=== PATIENT | female | born 1985 | race Caucasian/White ===

== ENCOUNTER → 2021-02-01 09:23 | Outpatient (REF) | payer OTHER, SELFPAY | LOC: ANHLAB 09:23 | PROVIDERS: PCP Physician Assistant; Visit Provider Nurse Practitioner | DX: D22.71 Melanocytic nevi of right lower limb, including hip (principal); D22.5 Melanocytic nevi of trunk | CPT/HCPCS: 88305 ==

== ENCOUNTER 2022-07-25 11:22 | Outpatient (CLI) | payer OTHER, SELFPAY ==
--- NOTE | ~2022-07-25 | MMUS_ITS ---
EXAMINATION: MM diagnostic darren LT w vaughn, US breast LT limited HISTORY: Palpable lump in the upper outer quadrant of the left breast. TECHNIQUE: Craniocaudal, mediolateral, and mediolateral oblique 3-D tomosynthesis images of the left breast were performed and synthetic 2-D images were generated. CAD analysis was submitted and interpr eted. High resolution limited left breast ultrasound was performed. COMPARISON: None, baseline BREAST PARENCHYMAL COMPOSITION: The breasts are heterogeneously dense, which may obscure small masses . FINDINGS: MAMMOGRAPHIC FINDINGS: No suspicious mass, calcification, or architectural distortion are identified to suggest malignancy. No mammographic correlate is identified for the reported palpable abnormality of concern. ULTRASOUND: There is no evidence of focal abnormal solid or cystic mass in the vicinity of the reported palpable abnormality of concern in the left breast. IMPRESSION: 1. No specific mammographic or sonographic correlate is identified for the reported palpable abnormal ity of concern. Further evaluation at this time should be based on clinical assessment. Continued fol low-up physical examination is recommended. 2. Recommend routine screening mammography beginning at age 40. BI-RADS Category 1: Negative Reviewed, dictated and finalized at location A. IMPRESSION: 1. No specific mammographic or sonographic correlate is identified for the repo rted palpable abnormality of concern. Further evaluation at this time should be based on clinical assessment. Continued follow-up physical examination is jimy mmended. 2. Recommend routine screening mammography beginning at age 40. BI-RADS Category 1: Negative
== END 2022-07-25 11:23 | disposition home or self-care (01) ==
PROVIDERS: PCP Physician Assistant; Visit Provider Obstetrics & Gynecology Gynecology
DX: N63.20 Unspecified lump in the left breast, unspecified quadrant (principal)
CPT/HCPCS: 76642; 77061; 77065; G0279

== ENCOUNTER 2022-08-04 22:13 | Emergency (ER) | payer OTHER, SELFPAY ==
--- NOTE | ~2022-08-04 | CT_ITS ---
EXAMINATION: CTA chest PE protocol DATE: 08/05/2022 02:56 INDICATION: Tachycardia. TECHNIQUE: Computed tomography angiography (CTA) of the chest was performed with 100 mL Omnipaque-350 intravenous contrast timed to evaluate the pulmonary arteries. Coronal maximum intensity projection 3D-reconstructions were created by the technologist. Automated exposure control and iterative reconst ruction technique were employed. The dose-length product was 225.08 mGy-cm. COMPARISON: Chest CT 09/23/2010 FINDINGS: There is no pneumonia or pleural effusion. The heart size is normal. No pericardial effusio n. There is no pulmonary embolus. There is mild thoracic spondylosis. IMPRESSION: 1. No pulmonary embolus. Reviewed, dictated and finalized at location A. IMPRESSION: 1. No pulmonary embolus.
--- NOTE | ~2022-08-04 | XR_ITS ---
EXAMINATION: XR chest 1V portable DATE: 08/05/2022 00:59 INDICATION: Sepsis. Fever. TECHNIQUE: A single frontal view of the chest was obtained. COMPARISON: Chest 2 views 10/02/2015, chest CT 08/05/2022 FINDINGS: The chest demonstrates clear lungs without pneumonia, pleural effusion, or pneumothorax. Th e heart size is normal. IMPRESSION: 1. No acute cardiopulmonary disease. Reviewed, dictated and finalized at location A.
[2022-08-04 22:23] VITALS: BP 130/97; PULSE 129; RESP 18; TEMP 37.6; O2SAT 100
--- NOTE | 2022-08-04 22:50 | ED.FEVER ---
HPI - Fever General Chief Complaint: Fever Stated Complaint: sparrow, chills, abd pain Time Seen by Provider: 08/04/22 22:38 History of Present Illness HPI Narrative: Patient is a 37-year-old female presenting with general malaise and palpitations. Patient states that she was feeling generally unwell today. This evening, she laid down to take a nap. When she woke up, she felt like her heart was racing out of her chest. States that she felt very hot as well. Patient states that she had 2 tooth extractions approximately a week ago. States that she has not had any oral pain or swelling. States that she was concerned that she may have an infection today so she came in for evaluation. Currently, patient states that she still feels generally rundown. Reports mild headache. She denies vision changes, numbness or weakness, chest pain, cough, shortness of breath, abdominal pain, nausea or vomiting, diarrhea, dysuria, leg swelling. Related Data Home Medications Medication Instructions Recorded Confirmed metoprolol succinate PO PRN 12/28/20 Allergies Allergy/AdvReac Type Severity Reaction Status Date / Time Penicillins Allergy Unknown Swelling Verified 08/04/22 22:41 Review of Systems Review of Systems: All systems reviewed & are unremarkable except as noted in HPI and below PMFSH Past Medical History Medical History SVT (supraventricular tachycardia) Family History Family History Father Heart disease Cancer Mother SVT (supraventricular tachycardia) Skin cancer Social History Social History Smoking status: Never smoker Alcohol intake: never Substance use: never Exam Narrative: GENERAL: Well-appearing, well-nourished, and in no acute distress. HEAD: Normocephalic, atraumatic. EYES: PERRLA and EOMI. ENT: Nares clear, no rhinorrhea or epistaxis. Mucous membranes moist. NECK: Supple. CHEST: Clear to auscultation. No respiratory distress. HEART: Tachycardic, Regular rhythm. No murmur heard. Normal peripheral pulses. ABDOMEN: Soft, nontender, nondistended, normal active bowel sounds. EXTREMITIES: Normal range of motion. No edema. SKIN: Warm, dry, no rash. NEURO: No focal deficits. Alert and oriented x3. PSYCH: Normal mood and affect. Course Vital Signs Vital signs: Vital Signs Temperature 99.6 F 08/04/22 22:23 Pulse Rate 129 H 08/04/22 22:23 Respiratory Rate 18 08/04/22 22:23 Blood Pressure 130/97 H 08/04/22 22:23 Pulse Oximetry 100 08/04/22 22:23 Oxygen Delivery Room Air 08/04/22 22:23 Temperature 98.9 F 08/05/22 00:50 Pulse Rate 76 08/05/22 04:09 Respiratory Rate 17 08/05/22 04:09 Blood Pressure 105/59 L 08/05/22 04:09 Pulse Oximetry 99 08/05/22 04:09 Oxygen Delivery Room Air 08/04/22 22:23 MDM - Fever MDM Narrative Medical decision making narrative: Patient is a 37-year-old female presenting with general malaise and palpitations. On arrival, patient is tachycardic in the 120s. Remainder of vitals are within normal limits. Exam is otherwise unremarkable. Dimer slightly elevated so CT PE study ordered. Blood work unremarkable except for very mild thrombocytopenia. CT PE shows no evidence of PE. Patient continues to rest comfortably. Her vital signs have normalized following IV fluids. Discussed the reassuring work-up with the patient. Suspect her symptoms are related to a viral syndrome. Advised PCP follow-up and appropriate return precautions were given. Patient voiced understanding and is agreeable with plan. Discharged in stable condition. Lab Data Result diagrams: 08/04/22 23:43 08/04/22 23:43 Labs: Lab Results 08/04/22 08/04/22 08/04/22 Range/Units 23:42 23:43 23:43 WBC 5.9 (4.5-10.0) K/mm3 RBC 4.35 (4.2-5.4) M/mm3 Hg
[2022-08-04 23:19] VITALS: BP 130/58; PULSE 105; RESP 22; TEMP 37.7; O2SAT 99
[2022-08-04] MEDS: SODIUM CHLORIDE 0.9% IV 2,000 ML 999 ML (23:39)
[2022-08-04] MEDS: KETOROLAC 15 MG/ML VIAL (*BKC) IV PUSH (23:40)
[2022-08-04 23:51] LABS: Basophils Percent Auto 0.5 % (0.2-1.2); Eosinophils Percent Auto 0.3 % (0-4.4); Hematocrit 40.4 % (37.0-47.0); Hemoglobin 13.8 g/dL (12.0-15.0); Immature Granulocyte Absolute 0.02 K/mm3 (0.00-0.031); Immature Granulocyte Percent A 0.3 % (0-0.5); Immature Platelet Fraction Pct 4.3 % (0.9-11.2); Lymphocytes Absolute Auto 0.62 K/mm3 (0.9-3.2); Lymphocytes Percent Auto 10.5 % (18.3-44.2); Mean Corpuscular HGB Conc 34.2 g/dl (32-36); Mean Corpuscular Hemoglobin 31.7 pg (26-34); Mean Corpuscular Volume 92.9 fl (80-100); Mean Platelet Volume 10.5 fl (7.4-10.4); Monocytes Absolute Auto 0.3 K/mm3 (0.1-0.6); Monocytes Percent Auto 4.7 % (2.6-8.5); Neutrophils Percent Auto 83.7 % (45.5-73.1); Platelet Count Result 133 k/mm3 (150-375); Red Blood Count 4.35 M/mm3 (4.2-5.4); Red Cell Distribution Width 12.6 % (11.5-14.5); White Blood Count 5.9 K/mm3 (4.5-10.0)
[2022-08-04 23:52] LABS: Add Urine Microscopic? YES; Appearance Urine Cloudy (Clear); Bilirubin Urine Negative (Negative); Blood Urine Negative (Negative); Color Urine Yellow (Yellow); Glucose Urine UA Negative (Negative); Ketones Urine Trace mg/dL (Negative); Leukocyte Esterase Ur Negative LEU/UL (Negative); Mucus Urine Rare /lpf; Nitrate Urine Negative (Negative); Protein Urine Negative (Negative); Specific Grav Ur 1.006 (1.001-1.035); Urobilinogen Urine Negative mg/dL (<2.0)
[2022-08-04 23:58] LABS: Lactic Acid Reflex 0.8 mmol/L (0.7-2.0)
[2022-08-04 23:59] LABS: INR 1.1; Prothrombin Time 13.9 Seconds (11.1-14.7)
[2022-08-05 00:02] LABS: Alanine Aminotransferase 33 U/L (6-35); Albumin Level 4.5 g/dL (3.5-5.1); Alkaline Phosphatase 56 U/L (38-126); Anion Gap 10 mmol/L (8-16); Aspartate Amino Transferase 35 U/L (14-36); Bilirubin,Total 1.4 mg/dL (0.2-1.3); Blood Urea Nitrogen 15 mg/dL (7-17); CRP 1.1 mg/dL (<1.0); Calcium 9.3 mg/dL (8.4-10.2); Carbon Dioxide 26 mmol/L (22-30); Chloride 97 mmol/L (98-107); Estimated CRCL calculation 84 ml/min; Estimated Glomerular Filt Rate > 60; Glucose 104 mg/dL (65-110); Potassium 3.7 mmol/L (3.4-5.0); Sodium 133 mmol/L (137-145)
[2022-08-05 00:25] LABS: Influenza A QL RT-PCR Negative (Negative); Influenza B QL RT-PCR Negative (Negative); SARS-CoV-2 RNA PCR Negative
[2022-08-05] MEDS: SODIUM CHLORIDE 0.9% IV 1,000 ML 999 ML IV CONT (00:47)
[2022-08-05 00:50] VITALS: BP 113/62; PULSE 88; RESP 20; TEMP 37.2; O2SAT 99
[2022-08-05 01:25] LABS: D Dimer 0.57 ug/mL (<0.48)
[2022-08-05 01:30] VITALS: BP 111/79; PULSE 85; RESP 19; O2SAT 99
[2022-08-05 03:35] VITALS: BP 123/77; PULSE 88; RESP 19; O2SAT 100
[2022-08-05 04:09] VITALS: BP 105/59; PULSE 76; RESP 17; O2SAT 99
== END 2022-08-05 04:10 | disposition home or self-care (01) ==
PROVIDERS: Emergency Provider Emergency Medicine; PCP Physician Assistant
DX: R53.81 Other malaise (principal); R53.83 Other fatigue; R50.9 Fever, unspecified; Z20.822 Contact with and (suspected) exposure to COVID-19
CPT/HCPCS: 36415; 71045; 71275; 80053; 81001; 81025; 83605; 84443; 85025; 85055; 85380; 85610; 85730; 86140; 87502; 96361; 96374; 96375; 99284; C9803; J0131; J1885; J7030; Q9967; U0003; U0005

== ENCOUNTER 2022-12-24 17:37 | Emergency (ER) | payer OTHER, SELFPAY ==
--- NOTE | ~2022-12-24 | XR_ITS ---
EXAMINATION: XR chest 2V DATE: 12/24/2022 18:35 INDICATION: Heart palpitations TECHNIQUE: Frontal and lateral views of the chest are obtained COMPARISON: 08/05/2022 FINDINGS: The lungs are free of acute opacities. No pleural effusion or pneumothorax. The cardiomedia stinal silhouette is normal. There is mild thoracic spondylosis. IMPRESSION: 1. No acute cardiopulmonary abnormality. Reviewed, dictated and finalized at location F. ER OPERATOR
[2022-12-24 17:56] VITALS: PULSE 143
--- NOTE | 2022-12-24 17:56 | ECG_ITS ---
Measurements Intervals [place] Rate: 79 P: 30 CT: 183 QRS: 15 QRSD: 106 T: 29 QT: 349 QTc: 401 Interpretive Statements SINUS RHYTHM INCOMPLETE RIGHT BUNDLE BRANCH BLOCK BASELINE ARTIFACT- I, III, AVL, V1, V3-V4 BORDERLINE ECG NO PREVIOUS ECG AVAILABLE FOR COMPARISON Electronically Signed On 12-24-2022 21:09:31 HEALTHCARE ANALYST by Shan Tilley D.O.
[2022-12-24 17:57] VITALS: BP 145/84; PULSE 137; RESP 18; TEMP 36.8; O2SAT 100
--- NOTE | 2022-12-24 18:03 | ECG_ITS ---
Measurements Intervals [place] Rate: 159 P: NM: 0 QRS: 34 QRSD: 133 T: 49 QT: 296 QTc: 482 Interpretive Statements ATRIAL FLUTTER/TACHYCARDIA WITH RAPID VENTRICULAR RESPONSE INCOMPLETE RIGHT BUNDLE BRANCH BLOCK BASELINE WANDER- III, V3 ABNORMAL ECG NO PREVIOUS ECG AVAILABLE FOR COMPARISON Electronically Signed On 12-25-2022 9:59:16 SPECIAL AGENT SECRET SERVICE by Shan Tilley D.O.
[2022-12-24 18:19] LABS: Basophils Absolute Auto 0.1 K/mm3 (0.0-0.1); Basophils Percent Auto 0.7 % (0.2-1.2); Eosinophils Absolute Auto 0.2 K/mm3 (0-0.3); Eosinophils Percent Auto 1.9 % (0-4.4); Hematocrit 41.2 % (37.0-47.0); Hemoglobin 14.4 g/dL (12.0-15.0); Immature Granulocyte Absolute 0.02 K/mm3 (0.00-0.031); Immature Granulocyte Percent A 0.2 % (0-0.5); Lymphocytes Absolute Auto 3.55 K/mm3 (0.9-3.2); Lymphocytes Percent Auto 41.8 % (18.3-44.2); Mean Corpuscular Volume 91.6 fl (80-100); Mean Platelet Volume 10.6 fl (7.4-10.4); Monocytes Absolute Auto 0.7 K/mm3 (0.1-0.6); Monocytes Percent Auto 8.1 % (2.6-8.5); Neutrophils Percent Auto 47.3 % (45.5-73.1); Platelet Count Result 195 k/mm3 (150-375); Red Cell Distribution Width 12.5 % (11.5-14.5); White Blood Count 8.5 K/mm3 (4.5-10.0)
[2022-12-24 18:31] LABS: Alanine Aminotransferase 33 U/L (6-35); Albumin Level 4.8 g/dL (3.5-5.1); Alkaline Phosphatase 65 U/L (38-126); Anion Gap 10 mmol/L (8-16); Aspartate Amino Transferase 43 U/L (14-36); Bilirubin,Total 0.8 mg/dL (0.2-1.3); Blood Urea Nitrogen 19 mg/dL (7-17); Calcium 9.3 mg/dL (8.4-10.2); Carbon Dioxide 24 mmol/L (22-30); Chloride 99 mmol/L (98-107); Estimated CRCL calculation 78 ml/min; Estimated Glomerular Filt Rate > 60; Glucose 114 mg/dL (65-110); Magnesium 1.9 mg/dL (1.6-2.3); Potassium 3.1 mmol/L (3.4-5.0); Sodium 133 mmol/L (137-145)
[2022-12-24] MEDS: SODIUM CHLORIDE 0.9% IV 1,000 ML 999 ML IV CONT (18:40)
[2022-12-24 18:43] LABS: NT Pro B Type Natriuretic Pept 51 pg/mL (19.9-100); Troponin I < 0.012 ng/mL (0.000-0.034)
[2022-12-24] MEDS: POTASSIUM CHLORIDE 20 MEQ TABLET 40 MEQ PO (18:44)
--- NOTE | 2022-12-24 18:44 | ED.ARRPALP ---
HPI - Arrhythmia/Palpitations General Chief Complaint: Arrhythmia/Palpitations <MARLENA Nielsen Last Filed: 12/25/22 05:07> Stated Complaint: rapid hr <MARLENA Nielsen Last Filed: 12/25/22 05:07> Time Seen by Provider: 12/24/22 17:46 <MARLENA Nielsen Last Filed: 12/25/22 05:07> Source: patient <MARLENA Nielsen Last Filed: 12/25/22 05:07> Mode of arrival: ambulatory <MARLENA Nielsen Last Filed: 12/25/22 05:07> Limitations: no limitations <MARLENA Nielsen Last Filed: 12/25/22 05:07> History of Present Illness HPI narrative: Patient is a 37 y/o female who presents to the ED with c/o palpitations. Patient reports she was running on the treadmill today and doing sprints. She noticed her heart rate in the 160s to 170s while sprinting. When she began slowing the treadmill down, her heart rate improved, but she then developed palpations and noted her HR to be elevated again into the 150s. She attempted to rest, bear down, splash with cold water, but no change in her heart rate. Still remaining elevated. Patient has a history of SVT and states this felt somewhat similar. She typically experiences this 1-2 X per year, typically brought on by exercise or certain movements. She took her as needed metoprolol, but still no change or her heart rate, which prompted her presentation. Patient sees Dr. Rawls. She denies any chest pain, difficulty breathing, recent cough or cold symptoms, abdominal pain, nausea, vomiting, dizziness, lightheadedness, syncope. <MARLENA Nielsen Last Filed: 12/25/22 05:07> Related Data Home Medications: Home Medications Medication Instructions Recorded Confirmed metoprolol succinate PO PRN Tachycardia 12/28/20 <MARLENA Nielsen Last Filed: 12/25/22 05:07> Allergies/Adverse Reactions: Allergies Allergy/AdvReac Type Severity Reaction Status Date / Time Penicillins Allergy Unknown Swelling Verified 12/24/22 18:01 <Dahiana Carson PA-C - Last Filed: 12/25/22 05:07> Review of Systems Review of Systems: CONSTITUTIONAL: Denies fever, chills, or sweats. EYES: Denies visual changes, redness, or discharge. ENT: Denies rhinorrhea, congestion, sore throat. CARDIOVASCULAR: See HPI. RESPIRATORY: Denies cough or dyspnea. GASTROINTESTINAL: Denies abdominal pain, nausea, vomiting. PSYCHIATRIC: See HPI. <Dahiana Carson PA-C - Last Filed: 12/25/22 05:07> All systems reviewed & are unremarkable except as noted in HPI and below <Dahiana Carson PA-C - Last Filed: 12/25/22 05:07> [facility] Past Medical History Medical History: Medical History SVT (supraventricular tachycardia) <Dahiana Carson PA-C - Last Filed: 12/25/22 05:07> Surgical History Surgical History: Surgical History No pertinent past surgical history <Dahiana Carson PA-C - Last Filed: 12/25/22 05:07> Family History Family History: Family History Father Heart disease Cancer Mother SVT (supraventricular tachycardia) Skin cancer <Dahiana Carson PA-C - Last Filed: 12/25/22 05:07> Social History Social History: Social History Smoking status: Never smoker Alcohol intake: never Substance use: never <Dahiaan Carson PA-C - Last Filed: 12/25/22 05:07> Exam Narrative: GENERAL: Well appearing, obese, non-toxic, in no acute distress. HEAD: Normocephalic, atraumatic. NECK: Supple. No adenopathy, no masses. RESPIRATORY: Airway patent, respirations nonlabored. Clear to auscultation bilaterally, no rales, rhonchi, wheezing. CARDIOVASCULAR: Tachycardic with seemingly regular rhythm with
[2022-12-24 19:25] VITALS: PULSE 77; RESP 16; O2SAT 100
--- NOTE | 2022-12-24 19:29 | PC.NURSE ---
Assumed care of pt at this time. Pt ambulated to restroom with steady gait.
[2022-12-24 19:38] LABS: D Dimer 0.34 ug/mL (<0.48)
[2022-12-24 19:38] LABS: Appearance Urine Clear (Clear); Bilirubin Urine Negative (Negative); Blood Urine Negative (Negative); Color Urine Yellow (Yellow); Glucose Urine UA Negative (Negative); Ketones Urine Negative (Negative); Leukocyte Esterase Ur Negative LEU/UL (Negative); Nitrate Urine Negative (Negative); Protein Urine Negative (Negative); Specific Grav Ur 1.006 (1.001-1.035); Urobilinogen Urine 0.2 mg/dL (<2.0); pH Urine 7.5 (5.0-9.0)
[2022-12-24 19:47] VITALS: BP 121/71
[2022-12-24 19:50] LABS: Add Urine Microscopic? NO
[2022-12-24 20:09] LABS: Free T4 Free Thyroxine 1.29 ng/mL (0.78-2.19)
[2022-12-24 21:19] VITALS: BP 114/71; PULSE 83; RESP 20; O2SAT 100
== END 2022-12-24 21:54 | disposition home or self-care (01) ==
PROVIDERS: Emergency Provider Physician Assistant; PCP Physician Assistant
DX: I48.92 Unspecified atrial flutter (principal); R00.2 Palpitations; R94.6 Abnormal results of thyroid function studies; I45.10 Unspecified right bundle-branch block
CPT/HCPCS: 36415; 71046; 80053; 81003; 83735; 83880; 84439; 84443; 84484; 85025; 85380; 93005; 96360; 96361; 99283; A9270; J7030

== ENCOUNTER 2025-05-18 09:25 | Emergency (ER) | payer OTHER, SELFPAY ==
--- NOTE | 2025-05-18 09:15 | ECG_ITS ---
Test Date: 2025-05-18 09:50:46 Measurements Intervals [place] Rate: 89 P: 70 [place]: 182 QRS: 55 QRSD: 110 T: 42 QT: 351 QTc: 427 Interpretive Statements SINUS RHYTHM INCOMPLETE RIGHT BUNDLE-BRANCH BLOCK Compared to ECG 05/18/2025 09:25:59 Atrial flutter no longer present ST (T wave) deviation no longer present Electronically Signed On 05-18-2025 12:44:37 CDT by Sylvain Navarro M.D.
[2025-05-18 09:19] VITALS: BP 128/72; PULSE 146; RESP 18; TEMP 36.4; O2SAT 100
[2025-05-18 09:29] VITALS: PULSE 144
--- NOTE | 2025-05-18 09:47 | ECG_ITS ---
Test Date: 2025-05-18 09:25:59 Measurements Intervals [place] Rate: 147 P: 0 [place]: 0 QRS: 61 QRSD: 117 T: 43 QT: 310 QTc: 485 Interpretive Statements ATRIAL FLUTTER/TACHYCARDIA WITH RAPID VENTRICULAR RESPONSE INCOMPLETE RIGHT BUNDLE BRANCH BLOCK [90+ ms QRS DURATION, TERMINAL R IN V1/V2, 40+ ms S IN I/aVL/V4/V5/V6] MODERATE ST DEPRESSION [0.05+ mV ST DEPRESSION] No previous ECG available for comparison Electronically Signed On 05-18-2025 12:44:12 CDT by Sylvain Navarro M.D.
[2025-05-18 09:50] VITALS: PULSE 84
[2025-05-18] MEDS: LACTATED RINGERS 1,000 ML 999 ML IV CONT (10:00)
--- OUTSIDE RECORDS SUMMARY | 2025-05-18 10:21 | XMS_ITS | Clinical Summary ---
Author Organization [facility] [facility] Address [address] [place] [address] Care Team Providers Care Senior Quality Manager Name Role Phone Marybel Gutierrez APRN Primary Care Provider Allergies Active Allergy Reactions Criticality Noted Date Comments Penicillins Hives High 08/09/2017 Medications methylPREDNISolo ne (MEDROL DOSPACK) 4 mg Tablets, Dose Pack Take as directed.. 1 Package 08/09/2017 Active Active Problems No known active problems Family History Medical History Relation Name Comments No Known Problems Brother No Known Problems Daughter Heart Disease Father Liver Cancer Father Seizures Mother Heart Disease Paternal Grandfather Diabetes Paternal Grandmother Stroke Paternal Grandmother No Known Problems Sister No Known Problems Son Relation Name Status Comments Brother Alive Daughter Alive Father Maternal Grandfather Other adopted Maternal Grandmother Other adopted Mother Alive Paternal Grandfather Paternal Grandmother Sister Alive Son Alive Social History Tobacco Use Types Packs/Day Years Used Date Smoking Tobacco: Never Smokeless Tobacco: Never Alcohol Use Standard Drinks/Week Comments Yes 0 (1 standard drink = 0.6 oz pur e alcohol) rare Comments No Sex and Gender Information Value Date Recorded Sex Assigned at Not on file Legal Sex Female 1:37 PM CDT Gender Identity Not on file Sexual Orientation Not on file Occupation Industry Job Start Date Job End Date Not on file Not on file Not on file Not on file Last Filed Vital Signs Vital Sign Reading Time Taken Comments Blood Pressure 134/86 08/09/2017 3:10 PM CDT Pulse 85 08/09/2017 3:10 PM CDT Temperature 37.2 C (98.9 F) 08/09/2017 3:10 PM CDT Respiratory Rate 16 08/09/2017 3:10 PM CDT Oxygen Saturation 98% 08/09/2017 3:10 PM CDT Inhaled Oxygen Concentration - - Weight 78.9 kg (174 lb) 08/09/2017 3:10 PM CDT Height 162.6 cm (5' 4) 08/09/2017 3:10 PM CDT Body Mass Index 29.87 08/09/2017 3:10 PM CDT Plan of Treatment Health Maintenance Due Date Last Done Comments HPV VACCINES (1 - 3-dose series) 02/08/1999 DTAP/TDAP/TD VACCINES (1 - Tdap) 02/08/2003 HEPATITIS B VACCINES (1 of 3 - 19+ 3-dose series) 02/08/2003 HPV/Cotest (21-29) 02/08/2005 HPV/Cotest (30-65) 02/08/2014 CERVICAL CANCER SCREENING 07/22/2019 PAP SMEAR 07/22/2019 07/22/2016 (Prev iously completed) BREAST CANCER SCREENING 2024 INFLUENZA VACCINE (#1) 2025 Care Teams Senior Quality Manager Relationship Specialty Start Date End Date Marybel Gutierrez APRN PCP - General NURSE PRACTITIONER 08/09/17
--- OUTSIDE RECORDS SUMMARY | 2025-05-18 10:21 | XMS_ITS | Clinical Summary ---
Author Organization [facility] [place] [address] Address [address] [place] [address] Care Team Providers Care Client Administrator Name Role Phone Licha Golden MD Unavailable [phone] Anish Rawls MD Unavailable Kiara Serrano NP Primary Care Provider [phone] Allergies Active Allergy Reactions Criticality Noted Date Comments Erythromycin Base Nausea only Medium 10/19/2022 Penicillins Hives High 08/09/2017 Medications vitamin B complex (B COMPLEX 1 ORAL) B Complex takes daily, otc 09/28/2020 Active omega-3 fatty acids-fish oil 360-1,200 mg capsule Fish Oil 360 mg-1,200 mg capsule Take 1 capsule every day by oral route. 11/12/2015 Active multivitamin-Ca -iron-minerals tablet Take by mouth Active cholecalciferol (VITAMIN D-3) 5,000 unit tablet Active tirzepatide, weight loss, (ZEPBOUND) 10 mg/0.5 mL pen injector Inject 0.5 mL (10 mg total) under the skin every 7 days 2 mL 1 04/01/2025 Active metoprolol tartrate (LOPRESSOR) 25 mg immediate release tablet Take 0.5 tablets (12.5 mg total) by mouth 2 (two) times a day 90 tablet 2 04/10/2025 Active Active Problems Problem Noted Date Diagnosed Date Supraventricular tachycardia 01/19/2022 Encounters Date Type Department Care Team Description 04/23/2025 Telephone [facility] Primary Care at [address] [address] Kiara Serrano NP 02/26/2025 Telephone [facility] Cardiology [address] [place] [address] Trisha Arango MA 02/26/2025 Orders Only [facility] Cardiology [address] [place] [address] Provider, MD Jaimee from Last 3 Months Immunizations Immunization Administration Dates Next Due DTaP 04/16/2014 Influenza, Quadrivalent, Spl it, Preservative Free, Intramuscular 07/12/2023,08/24/2021 Influenza, Trivalent, Preser vative Free, Intramuscular 09/16/2024 Influenza, Unspecified 10/22/2023(Deferred: Inna ent Refused) Tdap 09/16/2024 Medical History Medical History Date Comments Supraventricular tachycardia SVT (supraventricular tachycardia) Family History Medical History Relation Name Comments Heart disease Father Liver cancer Father Epilepsy Mother Skin cancer Mother Stroke Other Heart disease Paternal Grandfather Stroke Paternal Grandmother Relation Name Status Comments Father Maternal Grandfather Mother Alive Other Paternal Grandfather Paternal Grandmother Social History Tobacco Use Types Packs/Day Years Used Date Smoking Tobacco: Never Smokeless Tobacco: Never Tobacco Cessation:Counseling Given: Not Answered AUDIT-C Answer Date Recorded Q1: How often do you have a drink containing alc ohol? Monthly or less 10/19/2022 Q2: How many drinks containi ng alcohol do you have on a typical day when you are drinking? 1 or 2 10/19/2022 Q3: How often do you have si x or more drinks on one occasion? Less than monthly 10/19/2022 PHQ-2 Answer Date Recorded PHQ-2 Total Score (If total score is 3 or more points, staff should administer the PHQ-9) 0 09/16/2024 Comments Unknown Sex and Gender Information Value Date Recorded Sex Assigned at Not on file Legal Sex Female 8:51 AM FIELD AGENT Gender Identity Not on file Sexual Orientation Not on file Obstetrics History Last Filed Vital Signs Vital Sign Reading Time Taken Comments Blood Pressure 114/76 10/23/2024 8:04 AM FIELD AGENT Pulse 71 10/23/2024 8:04 AM FIELD AGENT Temperature 36.7 C (98.1 F) 09/16/2024 8:04 AM FIELD AGENT Respiratory Rate - - Oxygen Saturation 96% 10/23/2024 8:04 AM FIELD AGENT Inhaled Oxygen Concentration - - Weight 88 kg (194 lb) 10/23/2024 8:04 AM FIELD AGENT Height 162.6 cm (5' 4) 10/23/2024 8:04 AM FIELD AGENT Body Mass Index 33.3 10/23/2024 8:04 AM FIELD AGENT Plan of Treatment Health Maintenance Due Date Last Done Comments Hepatitis C Screening 1984 Varicella Vaccines (1 of 2 - 13+ 2-dose series) 02/08/1997 Hepatitis B Screening 02/08/2002 HPV Vaccines (1 - 3-dose SCD M series) 02/08/2011 Breast Cancer Screening-Mammogram 10/19/2023 10/19/2022 Covid-19 Vaccine ( - 2023-2 5 season) 2024 09/23/2021, 12/10/2020, 11/11/2020 Influenza Vaccine (#1) 2025 , 07/12/2023, 08/24/2021 Cervical Cancer Screening 09/16/2025 09/16/2022 Depression Screening 09/16/2025 09/16/2024 Regular Well Visit/Exam 18-64 09/16/2025 09/16/2024 DTaP/Tdap/Td Vaccine (3 - Td or Tdap) 09/16/2034 09/16/2024, 04/16/2014 Pneumococcal vaccine <65 Aged Out No longer eligible based on patient's age to complete this topic Procedures Procedure Name Priority Date/Time Associated Diagnosis Comments DIAGNOSTIC MAMMOGRAM BILATERAL W KURT Schedule Routine, Read Routine (OP Routine) 10/19/2022 2:15 PM FIELD AGENT Mass of breast, unspecified laterality from Last 3 Months or Most Recently Relevant to Health Maintenance Results * Diagnostic Mammogram Bilateral W Kurt (10/19/2022 2:15 PM FIELD AGENT) Anatomical Region Laterality Modality Breast Bilateral Mammography 10/19/2022 3:01 PM FIELD AGENT Impressions 10/19/2022 3:01 PM FIELD AGENT No mammographic or sonographic evidence of malignancy. OVERALL FINAL ASSESSMENT: BI-RADS Category 1: Negative. Continued clinical follow-up is recommended. Unless earlier screening is clinically indicated, recommend annual screening mammography beginning at 40 years of age. Electronically signed by: Licha Fierro M.D. Narrative 10/19/2022 3:01 PM FIELD AGENT EXAMINATION: BILATERAL DIGITAL DIAGNOSTIC MAMMOGRAM INCLUDING CAD AND BILATERAL DIGITAL BREAST TOMOSYNTHESIS; LEFT BREAST SONOGRAM HISTORY: 37-year-old female whose physician noticed a palpable abnormality in the medial LEFT breast. This was worked up and found benign in July 2022 at an outside institution, but her physician still notices a palpable abnormality. COMPARISON: Left diagnostic mammogram and LEFT breast ultrasound on 07/25/2022 TECHNIQUE: Full field digital mammographic views of BOTH breasts were performed, including computer aided detection (CAD) and BILATERAL digital breast tomosynthesis (DBT). Directed ultrasound evaluation of the LEFT breast was a trained engravings polisher and by Dr. Fierro . BREAST PARENCHYMAL COMPOSITION: The breasts are heterogenously dense, which may obscure small masses. MAMMOGRAM FINDINGS: No suspicious mass, grouped micro-calcification, or architectural distortion is seen within EITHER breast. No focal abnormality is identified the site of the palpable lump which was marked upon the patient's skin in the medial LEFT breast. SONOGRAM FINDINGS: The patient was able to identify an oval 1 cm mobile palpable lump in the inner LEFT breast. Sonography at this location reveals a normal-appearing fat lobule. No suspicious solid or cystic mass is seen. Procedure Note Licha Fierro MD - 10/19/2022 EXAMINATION: BILATERAL DIGITAL DIAGNOSTIC MAMMOGRAM INCLUDING CAD AND BILATERAL DIGITAL BREAST TOMOSYNTHESIS; LEFT BREAST SONOGRAM HISTORY: 37-year-old female whose physician noticed a palpable abnormality in the medial LEFT breast. This was worked up and found benign in July 2022 at an outside institution, but her physician still notices a palpable abnormality. COMPARISON: Left diagnostic mammogram and LEFT breast ultrasound on 07/25/2022 TECHNIQUE: Full field digital mammographic views of BOTH breasts were performed, including computer aided detection (CAD) and BILATERAL digital breast tomosynthesis (DBT). Directed ultrasound evaluation of the LEFT breast was a trained engravings polisher and by Dr. Fierro . BREAST PARENCHYMAL COMPOSITION: The breasts are heterogenously dense, which may obscure small masses. MAMMOGRAM FINDINGS: No suspicious mass, grouped micro-calcification, or architectural distortion is seen within EITHER breast. No focal abnormality is identified the site of the palpable lump which was marked upon the patient's skin in the medial LEFT breast. SONOGRAM FINDINGS: The patient was able to identify an oval 1 cm mobile palpable lump in the inner LEFT breast. Sonography at this location reveals a normal-appearing fat lobule. No suspicious solid or cystic mass is seen. IMPRESSION: No mammographic or sonographic evidence of malignancy. OVERALL FINAL ASSESSMENT: BI-RADS Category 1: Negative. Continued clinical follow-up is recommended. Unless earlier screening is clinically indicated, recommend annual screening mammography beginning at 40 years of age. Electronically signed by: Licha Fierro M.D. Earlene Montejo NP IMG MAMMO PROCEDURES Final Result from Last 3 Months or Most Recently Relevant to Health Maintenance Insurance LOCAL [facility] [employer] Care Teams Client Administrator Relationship Specialty Start Date End Date Kiara Serrano NP [address] [facility] [address] [place], [place] [id number] PCP - General Family Medicine 09/16/24 Licha Golden MD [address] [facility] [address] [place] [address] Referring Physician Gynecology 08/17/22 Anish Rawls MD [address] [address] Consulting Physician Cardiology 09/16/24
--- OUTSIDE RECORDS SUMMARY | 2025-05-18 10:21 | XMS_ITS | Referral Summary ---
Author Organization [place] [address] [address] [place] [address] Care Team Providers Care Superintendent Drilling Name Role Phone Licha Golden MD Unavailable [phone] Anish Rawls MD Unavailable [phone] Kiara Serrano NP Primary Care Provider [phone] Encounters Date Type Department Care Team Description 04/23/2025 Telephone [facility] Primary Care at [address] [address] Kiara Serrano NP 02/26/2025 Telephone [facility] Cardiology [address] [place] [address] [address] [place] [address] Trisha Arango MA 02/26/2025 Orders Only [facility] Cardiology [address] [place] [address] [place] [address] Provider, MD Jaimee from Last 3 Months Allergies Active Allergy Reactions Criticality Noted Date [...] Noted Date Diagnosed Date Supraventricular tachycardia 01/19/2022 Immunizations Immunization Administration Dates Next Due DTaP 04/16/2014 Influenza, Quadrivalent, Spl it, Preservative Free, Intramuscular 07/12/2023,08/24/2021 Influenza, Trivalent, Preser vative Free, Intramuscular 09/16/2024 Influenza, Unspecified 10/22/2023(Deferred: Inna ent Refused) Tdap 09/16/2024 Social History Tobacco Use Types Packs/Day Years [...] on file Legal Sex Female 8:51 AM PANEL GLUER Gender Identity Not on file Sexual Orientation Not on file Last Filed Vital Signs Vital Sign Reading Time Taken Comments Blood Pressure 114/76 10/23/2024 8:04 AM PANEL GLUER Pulse 71 10/23/2024 8:04 AM PANEL GLUER Temperature 36.7 C (98.1 F) 09/16/2024 8:04 AM PANEL GLUER Respiratory Rate - - Oxygen Saturation 96% 10/23/2024 8:04 AM PANEL GLUER Inhaled Oxygen Concentration - - Weight 88 kg (194 lb) 10/23/2024 8:04 AM PANEL GLUER Height 162.6 cm (5' 4) 10/23/2024 8:04 AM PANEL GLUER Body Mass Index 33.3 10/23/2024 8:04 AM PANEL GLUER Plan of Treatment Not on file Procedures Procedure Name Priority Date/Time Associated Diagnosis Comments DIAGNOSTIC MAMMOGRAM BILATERAL W KURT Schedule Routine, Read Routine (OP Routine) 10/19/2022 2:15 PM PANEL GLUER Mass of breast, unspecified laterality from Last 3 Months or Most Recently Relevant to Health Maintenance Results * Diagnostic Mammogram Bilateral W Kurt (10/19/2022 2:15 PM PANEL GLUER) Anatomical Region Laterality Modality Breast Bilateral Mammography 10/19/2022 3:01 PM PANEL GLUER Impressions 10/19/2022 3:01 PM PANEL GLUER No mammographic or sonographic evidence of malignancy. OVERALL FINAL ASSESSMENT: BI-RADS Category 1: Negative. Continued clinical follow-up is recommended. Unless earlier screening is clinically indicated, recommend annual screening mammography beginning at 40 years of age. Electronically signed by: Licha Fierro M.D. Narrative 10/19/2022 3:01 PM PANEL GLUER EXAMINATION: BILATERAL DIGITAL DIAGNOSTIC MAMMOGRAM INCLUDING CAD [...] of the LEFT breast was a trained fingerprint expert and by Dr. Fierro . BREAST PARENCHYMAL [...] or cystic mass is seen. Procedure Note Fierro, Licha Stephenie, MD - 10/19/2022 EXAMINATION: BILATERAL DIGITAL DIAGNOSTIC [...] of the LEFT breast was a trained fingerprint expert and by Dr. Fierro . BREAST PARENCHYMAL [...] Recently Relevant to Health Maintenance Insurance [employer] [place] [address] [employer] Care Teams Superintendent Drilling Relationship Specialty Start Date End Date Kiara Serrano NP [address] [facility] [address] [place] [address] PCP - General Family Medicine 09/16/24 Licha Golden MD [address] [facility] [address] [place] [address] Referring Physician Gynecology 08/17/22 Anish Rawls MD [address] [facility] [address] [place], [place] [id number] Consulting Physician Cardiology 09/16/24
--- OUTSIDE RECORDS SUMMARY | 2025-05-18 10:21 | XMS_ITS | Continuity of Care Document ---
Author Organization [facility] Address [address] [place] [address] Phone Care Team Providers Care Dental Surgeon Name Role Phone No Information Unavailable Unavailable Medications Medication Instructions Dosage Effective Dates (start - stop) Status Comments No Drug Therapy Prescribed Advance Directives Directive Yes / No Effective Date File Name No Information Encounters Encounter Description Practice Location Reason(s) For Visit Diagnoses Date Provider Providers Copied on Encounter [facility], [address] [place] [address], [facility], [place] tel:[phone] No Information No Information Family History Family Member Type Diagnosis Age At Onset No Information Payers Payer name Insurance type Covered constitution party ID Authoriza tion(s) No Information Social History Type Description Quantity Date Captured Comments Sex Female Smoking Status No Information Chief Complaint And Reason For Visit No Information History Of Present Illness Encounter Date Complaint History Of Prese nt Illness No Information Medications Administered Medication Instructions Dosage Effective Dates (start - stop) Status Comments No Drug Therapy Prescribed Instructions Date Instruction Additional Infor mation No Information Assessments Type Assessment Date No Information
[2025-05-18 10:37] LABS: Hematocrit 42.2 % (37.0-47.0); Hemoglobin 14.7 g/dL (12.0-15.0); Immature Granulocyte Percent A 0.2 % (0-0.5); Lymphocytes Absolute Auto 1.14 K/mm3 (0.9-3.2); Mean Corpuscular HGB Conc 34.8 g/dl (32-36); Mean Corpuscular Hemoglobin 31.5 pg (26-34); Mean Corpuscular Volume 90.6 fl (80-100); Nucleated Red Blood Cells Absolute Auto 0.000 K/mm3 (0.0-0.012); Nucleated Red Blood Cells Perc 0.0 % (0.0-0.2); Platelet Count Result 159 k/mm3 (150-375); Red Blood Count 4.66 M/mm3 (4.2-5.4); White Blood Count 6.0 K/mm3 (4.5-10.0)
[2025-05-18 10:50] LABS: INR 1.0; Prothrombin Time 13.1 Seconds (11.1-14.7)
[2025-05-18 10:51] LABS: Partial Thromboplastin Time 26.3 Seconds (22.3-36.8)
[2025-05-18 10:54] VITALS: BP 109/75; PULSE 71; RESP 18; O2SAT 100
[2025-05-18 10:56] LABS: Alanine Aminotransferase 24 U/L (6-35); Albumin Level 5.1 g/dL (3.5-5.1); Alkaline Phosphatase 48 U/L (38-126); Anion Gap 14 mmol/L (4-12); Aspartate Amino Transferase 43 U/L (14-36); Bilirubin,Total 1.0 mg/dL (0.2-1.3); Blood Urea Nitrogen 13 mg/dL (7-17); Calcium 10.0 mg/dL (8.4-10.2); Carbon Dioxide 23 mmol/L (22-30); Chloride 102 mmol/L (98-107); Estimated CRCL calculation 71 ml/min; Estimated Glomerular Filt Rate > 60; Glucose 92 mg/dL (65-110); Magnesium 2.1 mg/dL (1.6-2.3); Potassium 4.0 mmol/L (3.4-5.0); Sodium 139 mmol/L (137-145); Total Protein 9.1 g/dL (6.3-8.2)
[2025-05-18 11:27] LABS: Thyroid Stimulating Hormone Reflex 2.130 uIU/mL (0.465-4.68)
[2025-05-18 11:52] VITALS: BP 113/72; PULSE 90; RESP 18; O2SAT 100
--- NOTE | 2025-05-18 11:58 | ED_ITS ---
HPI - General Adult General Chief complaint: Arrhythmia/Palpitations Stated complaint: fast heart rate Time Seen by Provider: 05/18/25 09:47 History of Present Illness HPI narrative: 40-year-old female history of SVT present to the emergency department for evaluation after having episode of SVT. Patient was in SVT upon arrival emergency department did convert back to normal sinus rhythm spontaneously. Patient does have follow-up with Cardiology and patient does take metoprolol tartrate 12.5 mg every evening. Related Data Allergies Allergy/AdvReac Type Severity Reaction Status Date / Time Penicillins Allergy Unknown Swelling Verified 05/18/25 09:28 Review of Systems 2 Review of Systems: All systems reviewed & are unremarkable except as noted in HPI and below PMFSH Past Medical History Medical History SVT (supraventricular tachycardia) Surgical History Surgical History No pertinent past surgical history Family History Family History Father Heart disease Cancer Mother SVT (supraventricular tachycardia) Skin cancer Social History Social History Smoking status: Never smoker Alcohol intake: never Substance use: never Exam 2 Narrative: APPEARANCE: Well appearing, no pain, no distress, well-nourished. HEAD: normocephalic, atraumatic. EYES: PERRLA/EOMI, conjunctivae clear. NOSE: Normal no drainage EARS:TMS clear with good light reflex. THROAT: Pharynx clear, no exudate. NECK: Supple. No adenopathy, no masses. RESPIRATORY: Airway patent, respirations nonlabored. Clear to auscultation bilaterally, no rales, rhonchi, wheezing. CARDIOVASCULAR: Regular rate and rhythm without murmurs rubs or gallops. ABDOMINAL: Soft, nontender, nondistended, normal bowel sounds MUSCULOSKELETAL: Moves all extremities. Strength/ROM intact, No edema, No calf tenderness. NEURO: Alert. Cranial nerves II through XII intact. Good gait. Good coordination SKIN: Warm, dry. Normal Color Course Vital Signs Vital signs: Vital Signs Temperature 97.6 F 05/18/25 09:19 Pulse Rate 146 H 05/18/25 09:19 Respiratory Rate 18 05/18/25 09:19 Blood Pressure 128/72 05/18/25 09:19 Pulse Oximetry 100 05/18/25 09:19 Oxygen Delivery Room Air 05/18/25 09:19 Temperature 98.0 F 05/18/25 12:14 Pulse Rate 97 05/18/25 12:14 Respiratory Rate 18 05/18/25 12:14 Blood Pressure 105/74 05/18/25 12:14 Pulse Oximetry 100 05/18/25 12:14 Oxygen Delivery Room Air 05/18/25 09:19 Medical Decision Making MDM Narrative Medical decision making narrative: 40-year-old female present to the emergency department for evaluation SVT. Patient is currently afebrile with no leukocytosis hemoglobin of 614.7. Patient has an INR 1.0. Patient has no acute abnormalities on her CMP and Mag is within normal limits. Case was discussed with Cardiology they are okay increasing her to metoprolol XL and keeping the dose at 12.5. Patient will have close follow-up with Cardiology. Differential Diagnosis Differential Diagnosis: Sinus tachycardia, SVT, AFib with RVR Vital Signs Vital Signs: Vital Signs Temperature 97.6 F 05/18/25 09:19 Pulse Rate 146 H 05/18/25 09:19 Respiratory Rate 18 05/18/25 09:19 Blood Pressure 128/72 05/18/25 09:19 Pulse Oximetry 100 05/18/25 09:19 Oxygen Delivery Room Air 05/18/25 09:19 Temperature 98.0 F 05/18/25 12:14 Pulse Rate 97 05/18/25 12:14 Respiratory Rate 18 05/18/25 12:14 Blood Pressure 105/74 05/18/25 12:14 Pulse Oximetry 100 05/18/25 12:14 Oxygen Delivery Room Air 05/18/25 09:19 Lab Data Lab results reviewed: Yes I reviewed the patient's lab results. 05/18/25 10:27 05/18/25 10:27 Labs: Lab Results 05/18/25 Range/Units 10:27 WBC 6.0 (4.5-10.0) K/mm3 RBC 4.66 (4.2-5.4) M/mm3 Hgb 14.7 (12.0-15.0) g/dL Hct 42.2 (37.0-47.0) % MCV 90.6 (80-100) fl MCH 31.5 (26-34) pg MCHC 34.8 (32-36) g/dl RDW 11.9 (11.5-14.5) % Plt Count 159 (150-375) k/mm3 MPV 10.4 (7.4-10.4) fl Immature Gran % (Auto) 0.2 (0-0.5) % Neut % (Auto) 73.5 H (45.5-73.1) % Lymph % (Auto) 19.1 (18.3-44.2) % Dewitt % (Auto) 5.7 (2.6-8.5) % Eos % (Auto) 0.8 (0-4.4) % Baso % (Auto) 0.7 (0.2-1.2) % Lymph # (Auto) 1.14 (0.9-3.2) K/mm3 Dewitt # (Auto) 0.3 (0.1-0.6) K/mm3 Eos # (Auto) 0.1 (0-0.3) K/mm3 Baso # (Auto) 0.0 (0.0-0.1) K/mm3 Abs Immat Gran (auto) 0.01 (0.00-0.031) K/mm3 Absolute Neuts (auto) 4.4 (1.3-6.7) K/mm3 Absolute Nucleated RBC 0.000 (0.0-0.012) K/mm3 Nucleated RBC % 0.0 (0.0-0.2) % PT 13.1 (11.1-14.7) Seconds INR 1.0 APTT 26.3 (22.3-36.8) Seconds Sodium 139 (137-145) mmol/L Potassium 4.0 (3.4-5.0) mmol/L Chloride 102 (98-107) mmol/L Carbon Dioxide 23 (22-30) mmol/L Anion Gap 14 H (4-12) mmol/L BUN 13 D (7-17) mg/dL Creatinine 0.94 (0.7-1.0) mg/dL Estim Creat Clear Calc 71 ml/min Estimated GFR > 60 (59 - ) Glucose 92 (65-110) mg/dL Calcium 10.0 (8.4-10.2) mg/dL Magnesium 2.1 (1.6-2.3) mg/dL Total Bilirubin 1.0 (0.2-1.3) mg/dL AST 43 H (14-36) U/L ALT 24 (6-35) U/L Alkaline Phosphatase 48 (38-126) U/L Total Protein 9.1 H (6.3-8.2) g/dL Albumin 5.1 (3.5-5.1) g/dL TSH (Reflex) 2.130 (0.465-4.68) uIU/mL Discharge Plan Discharge Clinical Impression: Supraventricular tachycardia Patient Disposition: Home Condition: Stable Instructions: Antibiotic Form, Supraventricular Tachycardia (ED) Additional Instructions: Stop taking the metoprolol tartrate and start taking the extended release metoprolol. The dose was still be 12.5 mg daily. Have close follow-up with Cardiology. Patient Language: Greenlandic Prescriptions: New metoprolol succinate 25 mg tablet extended release 24 hr 12.5 mg PO DAILY 30 Days Qty: 15 0RF Discontinued metoprolol succinate PO PRN (Reason: Tachycardia) metoprolol succinate 25 mg tablet extended release 24 hr 12.5 mg PO DAILY Qty: 30 0RF Follow-up/Referrals: Kalyn,MARLENA Onofre [Primary Care Provider] -
[2025-05-18 12:14] VITALS: BP 105/74; PULSE 97; RESP 18; TEMP 36.7; O2SAT 100
== END 2025-05-18 12:18 | disposition home or self-care (01) ==
PROVIDERS: Emergency Provider Emergency Medicine; PCP Physician Assistant
DX: I47.10 Supraventricular tachycardia, unspecified (principal)
CPT/HCPCS: 36415; 80053; 83735; 84443; 85025; 85610; 85730; 93005; 96360; 99284; J7120